=== PATIENT | male | born 1940 | race Caucasian/White ===

== ENCOUNTER 2019-09-04 18:47 | Emergency (ER) | payer MEDICARE, BC, OTHER ==
[~2019-09-04] VITALS: Ht 165.1 cm; Wt 68.0 kg
[~2019-09-04 18:47] MED LIST: ACET325T53 PO; ACID16CA2 PO; BISM525O70 PO; HYDR-4076 PO; HYDR2TAB7 PO; ISOS30TA PO; LORA-258 PO; MAGN400O6 PO; MULT-24 PO; ONDA4TAB8 PO; PANT40SU PO; QUET25TA PO; QUET50TA PO; TAMS-12 PO; TEMA7.5C PO
--- NOTE | 2019-09-04 19:10 | NUR ---
BIBRA FORR EVALUATION OF LOW BP S/P HD. PT A, OX3 TRACH IN PLACE , VENT DEPENDENT, GT IN PLACE, LCW HD CATH INTACT.
[2019-09-04] MEDS ORDERED: oxyCODONE/APAP (5/325 MG) 1 UDTAB TABLET ONE (19:27)
[2019-09-04] MEDS ORDERED: oxyCODONE/APAP (5/325 MG) 1 UDTAB TABLET GT ONE (19:30)
--- NOTE | 2019-09-04 20:19 | NUR ---
PT IN BED AWAKE AND RESPONSIVE, WATCHING TV. ON VENT. NO RESP DISTRESS. VSS. WILL CONT TO MONITOR,
--- NOTE | 2019-09-04 20:37 | NUR ---
shayy rt eta [id number] trip#[id number]
--- NOTE | 2019-09-04 20:37 | NUR ---
SPOKE TO ALICIA AT THE FACILITY . REPORT GIVEN AND NURSE MADE AWARE OF THE PT'S CONDITION AND ETA
--- NOTE | 2019-09-04 21:59 | NUR ---
Patient discharged to home in stable condition. Written and verbal after care instructions given. Patient verbalizes understanding of instruction.
--- NOTE | 2019-09-04 22:00 | NUR ---
pt was picked up by [facility] in stable condition and stable vs via gurjadiel.
[2019-09-04 22:10] VITALS: BP 130/76
== END 2019-09-04 22:10 | disposition home or self-care (01) ==
LOC: ER 18:51
DX: I12.0 Hypertensive chronic kidney disease with stage 5 chronic kidney disease or end stage renal disease (principal); E11.22 Type 2 diabetes mellitus with diabetic chronic kidney disease; N18.6 End stage renal disease; L89.154 Pressure ulcer of sacral region, stage 4; G89.4 Chronic pain syndrome; I48.91 Unspecified atrial fibrillation; Z99.2 Dependence on renal dialysis; Z93.1 Gastrostomy status; Z98.890 Other specified postprocedural states; Z88.0 Allergy status to penicillin; Z79.899 Other long term (current) drug therapy

== ENCOUNTER 2019-10-27 18:28 | Emergency (ER) | payer MEDICARE, BC, OTHER ==
[~2019-10-27] VITALS: Ht 167.6 cm; Wt 88.5 kg
[2019-10-27 18:50] VITALS: BP 98/56
--- NOTE | 2019-10-27 19:00 | NUR ---
RT NOTE Late Entry: Pt rec'd trached on [facility] vent on noted settings given from transport RT. Pt shows no signs of resp distress or SOB. Trach is patent and secured. Sx'd for thick mod amt of pale yellow secretions. Alarms are set and audible. Vent plugged into red outlet. Ambu bag bedside. Will continue to monitor closely. Addendum: 10/27/19 at 2026 by VIJAY JORDAN RT Amended: Links added.
--- NOTE | 2019-10-27 19:10 | NUR ---
CALLED AM . ETA CHANGED TO [id number]
--- NOTE | 2019-10-27 19:28 | NUR ---
mse performed by dr. mckinney, pt may go back to facility, called for report, [facility] crew to transfer back.
== END 2019-10-27 19:29 | disposition home or self-care (01) ==
LOC: ER 18:32
DX: E11.22 Type 2 diabetes mellitus with diabetic chronic kidney disease (principal); I12.0 Hypertensive chronic kidney disease with stage 5 chronic kidney disease or end stage renal disease; N18.6 End stage renal disease; E11.40 Type 2 diabetes mellitus with diabetic neuropathy, unspecified; I48.91 Unspecified atrial fibrillation; Z99.2 Dependence on renal dialysis; Z98.890 Other specified postprocedural states; Z88.0 Allergy status to penicillin; Z79.899 Other long term (current) drug therapy